=== PATIENT | female | born 1995 | race Caucasian/White ===

== ENCOUNTER 2024-03-20 07:17 | Emergency (ER) | payer SELFPAY ==
[~2024-03-20] VITALS: Ht 152.4 cm; Wt 50.3 kg
[2024-03-20] MEDS ORDERED: IBUPROFEN 600 MG TABLET ONE (07:59)
[2024-03-20] MEDS: IBUPROFEN 600 MG TABLET PO ONE (08:01)
[2024-03-20 08:33] VITALS: BP 128/96; TEMP 98; O2SAT 98
== END 2024-03-20 10:04 | disposition left against medical advice (07) ==
LOC: ER 07:17
DX: M79.662 Pain in left lower leg (principal); V89.2XXA Person injured in unspecified motor-vehicle accident, traffic, initial encounter; Y93.89 Activity, other specified; Y92.89 Other specified places as the place of occurrence of the external cause; Y99.8 Other external cause status
CPT/HCPCS: 71045-TC; 72125-TC; 73590-TC